=== PATIENT | male | born 1940 | race Caucasian/White ===

== ENCOUNTER → 2017-12-20 | Outpatient (CLI) | payer MEDICARE, OTHER ==
[~2017-12-20] MED LIST: AUGMENTIN 875875 MG PO; BENADRYL25 MG PO; CENTRUM CHEWAB1 EACH PO; CLONIDINE HCL0.3 M2 PO; DARVOCET-N 1001 EACH PO; FUROSEMIDE 20 M20 M1 PO; HYDROXYZINE HCL25 M1 PO; MEDROLDOSEPACK PO; MOM; NORVASC 5 MG TAB5 MG PO; PEPCID20 MG PO; PERCOCET 5-3251 EACH PO; PLAVIX 75 MG TA75 MG PO; PREDNISONE 20 M20 M1 PO; PREDNISONE 20 M20 MG PO; PRILOSEC 20 MG20 MG PO; PROTONIX 20 MG20 M1 PO; PROTONIX40 M2 PO; SIMVASTATIN20 MG PO; TRIAMCINOLONE A80 G2 TOP; VENTOLIN HFA 1818 GM INH; VICODIN 5-5001 EACH PO; VITAMIN D400 UNI1 PO; ZOFRAN 4 MG ORAL4 M1 DIS; ZPAK PO
[2017-12-20 12:01] LABS: ANION GAP 5 mmol/L (7-16); BUN 15 mg/dL (7-18); CALCIUM 8.5 mg/dL (8.5-10.1); CHLORIDE 107 mmol/L (98-107); CHOLESTEROL 140 mg/dL (<200); CO2 33 mmol/L (21-32); GLUCOSE 101 mg/dL (70-99); HDL CHOLESTEROL 68 mg/dL (>40); LDL CHOLESTEROL 51 mg/dL (<100); SGOT 23 U/L (15-37); SGPT 24 U/L (30-65); SODIUM 145 mmol/L (136-145); TC:HDL 2.1 Ratio (Not establshd); TRIGLYCERIDE 109 mg/dL (<150); VLDL 22 mg/dL (<40)
[2017-12-20 12:06] LABS: CREATININE 0.9 mg/dL (0.6-1.3); SERUM ASSESSMENT Clear
== END ==
LOC: M.LAB 11:20
PROVIDERS: Internal Medicine Cardiovascular Disease
DX: I10 Essential (primary) hypertension (principal); E78.00 Pure hypercholesterolemia, unspecified; I25.119 Atherosclerotic heart disease of native coronary artery with unspecified angina pectoris

== ENCOUNTER 2018-02-04 07:16 | Emergency (ER) | payer MEDICARE, OTHER ==
[~2018-02-04] VITALS: Ht 170.2 cm; Wt 72.6 kg
[~2018-02-04 07:16] MED LIST changes: -PREDNISONE 20 M20 M1 PO; -VENTOLIN HFA 1818 GM INH; -ZPAK PO
[2018-02-04] MEDS ORDERED: PROTONIX 20 MG20 M1 PO (07:34)
[2018-02-04 08:49] LABS: INFLUENZA A ANTIGEN None Detected (None Detect); INFLUENZA B ANTIGEN None Detected (None Detect)
[2018-02-04] MEDS ORDERED: PREDNISONE 20 M20 M1 PO (08:52)
[2018-02-04] MEDS ORDERED: VENTOLIN HFA 1818 GM INH (08:52)
[2018-02-04] MEDS ORDERED: ZPAK PO (08:52)
[2018-02-04 08:57] VITALS: BP 143/81
== END 2018-02-04 08:57 | disposition home or self-care (01) ==
LOC: M.ERS 07:16
PROVIDERS: Family Medicine
DX: J40 Bronchitis, not specified as acute or chronic (principal); K21.9 Gastro-esophageal reflux disease without esophagitis; I10 Essential (primary) hypertension; E78.00 Pure hypercholesterolemia, unspecified; Z90.89 Acquired absence of other organs; Z88.6 Allergy status to analgesic agent

== ENCOUNTER → 2019-02-16 | Outpatient (CLI) | payer MEDICARE, OTHER ==
[~2019-02-16] MED LIST changes: +PREDNISONE 20 M20 M1 PO; +VENTOLIN HFA 1818 GM INH; +ZPAK PO
--- NOTE | 2019-02-16 17:07 | CARDNUC ---
[place] [address] CARDIAC NUCLEAR IMAGING REPORT Name: BRANDON CALLOWAY Room: [facility]#: [id number] Admission: 02/16/19 Attend Phys: Pelon Dean, Discharge: Date of : 36 Date of Service: 02/16/19 1707 Report #: [id number] THIS REPORT FOR: //name// APPROVED REPORT Study performed: 02/16/2019 07:45:00 Indication: CAD s/p CABG, RBBB. Patient Location: Out-Patient Stress Tech: Nakia Fritz Stress Nurse: Yamilex Cloud RN Ht: 5 ft 5 in Wt: 168 lbs BSA: 1.84 m2 BMI: 27.95 Medical History Medical History: Angina, CAD s/p CABG, HTN, Hyperlipidemia, RBBB. Medications: Amlodipine, Simvastatin, Clopidogrel. Allergies: ASA, Diltiazem, Metoprolol, Triamterene. Cardiac Risk Factors: Age, FHX of CAD, HTN, Hyperlipidemia. Previous Cardiac Procedures: CABG Pretest Chest Pain Characteristics: No chest pain Exercise History: Indeterminate Physical Disabilities: Generalized weakness. Meds Held (24 hrs): None Resting Data Rest SPECT myocardial perfusion imaging was performed in supine position 30 minutes following the intravenous injection of 10.8 mCi of Tc-99m Sestamibi. Time of rest injection: 08:10 The images were gated to evaluate regional wall motion and calculate left ventricular ejection fraction. Administration Route: IV Administration Site: Right Wrist Pharmacologic Stress Pharmacologic stress test was performed by injecting Regadenoson 0.4 mg IV push over 10-15 seconds immediately followed by the intravenous injection of 34.3 mCi of Tc-99m Sestamibi. Time of stress injection: 10:00 Administration Route: IV Administration Site: Left Arm Heart Rate at time of stress injection: [address] [place] [address] CARDIAC NUCLEAR IMAGING REPORT Name: BRANDON CALLOWAY Room: [facility]#: [id number] Admission: 02/16/19 Attend Phys: Pelon Dean, Discharge: Date of : 36 Date of Service: 02/16/19 1707 Report #: [id number] Gated Stress SPECT was performed 45 minutes after stress injection. The images were gated to evaluate regional wall motion and calculate left ventricular ejection fraction. Prone imaging was performed. Stress Test Details Stress Test: Pharmacologic stress was paired with low level exercise. Reason for pharmacologic stress test: Generalized weakness.. HR Max Heart Rate (APMHR): 140 bpm Resting HR: 61 bpm Target HR (85% APMHR): 119 bpm Max HR Achieved: 122 bpm % of APMHR: 87 Recovery HR: 79 bpm HR response to stress: Normal HR response to stress BP Resting BP: 138/76 mmHg Max BP: 169/72 mmHg Recovery BP: 145/69 mmHg BP response to stress: Normal blood pressure response to stress. ECG Resting ECG: nsr rbbb Stress ECG: nsr ST Change: none Arrhythmia: none Recovery ECG: nsr rbbb Recovery ST Change: none Recovery Arrhythmia: nsr Clinical Reason for Termination: Completed protocol Stress Symptoms: None Exercise duration: 4 min 00 sec Exercise capacity: 2.30 METs Nurse Comments 78 year old male presented with HX of CABG and RBBB. Patient able to walk on low, slow treadmill for walking Lexiscan. Patient tolerated test. Recovery unremarkable with PO caffeine. Patient escorted by staff to Nuclear Medicine for images. Patient stable with no [place] [address] CARDIAC NUCLEAR IMAGING REPORT Name: BRANDON CALLOWAY Room: [facility]#: [id number] Admission: 02/16/19 Attend Phys: Pelon Dean, Discharge: Date of : 36 Date of Service: 02/16/19 1707 Report #: [id number] Stress ECG Conclusion nnondiagnostic ecg portion Study Quality Study: Good Artifact: Mild Motion artifact Lung Uptake: Normal Study Data At rest, the left ventricular ejection fraction was 60%.. Post stress, the left ventricular ejection was 68%.. Perfusion negative perfusion nuclear stress test Wall Motion normal systolic function, no wall motion abnormality Paradoxical septal motion due to bundle branch block. Nuclear Conclusion ECG Findings: non-diagnostic Clinical Findings: negative for ischemia Nuclear Findings: negative for ischemia Exercise Capacity: normal Left Ventricular Function: normal Risk Study: low Negative nuclear stress test. <Conclusion> nnondiagnostic ecg portion <ELECTRONICALLY SIGNED> By: Pelon Dean MD, FACC 02/16/19 170 06 06 Pelon Dean MD, FACC /INF
== END ==
LOC: M.NUC 09-02 07:03
DX: Z48.812 Encounter for surgical aftercare following surgery on the circulatory system (principal); I25.10 Atherosclerotic heart disease of native coronary artery without angina pectoris; I10 Essential (primary) hypertension; E78.5 Hyperlipidemia, unspecified; Z79.899 Other long term (current) drug therapy; Z82.49 Family history of ischemic heart disease and other diseases of the circulatory system; Z95.1 Presence of aortocoronary bypass graft

== ENCOUNTER 2019-07-18 16:50 | Emergency (ER) | payer MEDICARE, OTHER ==
[~2019-07-18] VITALS: Ht 170.2 cm; Wt 70.3 kg
[2019-07-18 17:29] LABS: ABSOLUTE BASOPHILS 0.1 thou/uL (0.0-0.2); ABSOLUTE EOSINOPHILS 0.1 thou/uL (0.0-0.7); ABSOLUTE LYMPHOCYTES 1.8 thou/uL (0.8-5.3); ABSOLUTE MONOCYTES 0.5 thou/uL (0.0-1.2); BASOPHILS 1.2 %; EOSINOPHILS 1.2 %; HEMATOCRIT 38.4 % (42.0-52.0); HEMOGLOBIN 12.9 gm/dL (14.0-18.0); LYMPHOCYTES 33.1 %; MCH 29.7 pg (26.0-34.0); MCHC 33.6 g/dL (28.0-37.0); MCV 88.3 fL (80.0-100.0); MONOCYTES 9.5 %; MPV 6.9 fl. (7.2-11.1); NUCLEATED RBCS 0 /100WBC; PLATELET COUNT* 297 thou/uL (150-400); RBC 4.35 mil/uL (4.50-6.00); RDW-CV 14.9 % (10.5-14.5); WBC 5.4 thou/uL (4.0-11.0)
[2019-07-18 17:42] LABS: ANION GAP 7 mmol/L (7-16); BUN 11 mg/dL (7-18); CALCIUM 9.2 mg/dL (8.5-10.1); CHLORIDE 105 mmol/L (98-107); CO2 29 mmol/L (21-32); CREATININE 0.9 mg/dL (0.6-1.3); GLUCOSE 109 mg/dL (70-99); POTASSIUM 3.8 mmol/L (3.5-5.1); SODIUM 141 mmol/L (136-145)
[2019-07-18 17:44] LABS: APTT 25.4 Seconds (25.0-31.3); PROTIME 10.5 Seconds (9.20-11.50)
[2019-07-18 17:56] LABS: ALBUMIN 3.7 g/dL (3.4-5.0); ALKALINE PHOSPHATASE 71 U/L (46-116); CK-MB MASS 2.2 ng/mL (<0.5-3.6); LIPASE 98 U/L (73-393); MAGNESIUM 2.1 mg/dL (1.8-2.4); NT-PRO BRAIN NAT PEPTIDE 67 pg/mL (<300); SGOT 20 U/L (15-37); SGPT 21 U/L (30-65); TOTAL BILIRUBIN 0.5 mg/dL (<0.1-1.0); TOTAL PROTEIN 6.9 g/dL (6.4-8.2); TROPONIN-I LEVEL <0.06 ng/mL (<0.06)
[2019-07-18 18:18] VITALS: BP 145/56
--- NOTE | 2019-07-19 10:48 | EKG ---
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 : 1940 Requested By: Bryan Hook Order Number: [id number] MD: Ernesto Sexton Measurements Intervals [place] Rate: 72 P: 33 [place]: 176 QRS: -35 QRSD: 149 T: 18 QT: 420 QTc: 460 Interpretive Statements Sinus rhythm Ventricular premature complex Right bundle branch block LVH by voltage Baseline wander in lead(s) V2 Compared to ECG 02/11/2010 09:56:29 Ventricular premature complex(es) now present Right bundle-branch block now present Left ventricular hypertrophy now present Sinus tachycardia no longer present T-wave abnormality no longer present Electronically Signed On 07-19-2019 10:48:48 CDT by Ernesto Sexton [email or web address] <ELECTRONICALLY SIGNED> By: Ernesto Sexton MD, [facility] 07/19/19 1048 1709 1709 Ernesto Sexton MD, [facility] /EPI
== END 2019-07-18 18:19 | disposition home or self-care (01) ==
LOC: M.ERS 16:50
PROVIDERS: Family Medicine
DX: I10 Essential (primary) hypertension (principal); E78.00 Pure hypercholesterolemia, unspecified; K21.9 Gastro-esophageal reflux disease without esophagitis; Z88.6 Allergy status to analgesic agent; Z90.89 Acquired absence of other organs

== ENCOUNTER 2020-06-05 15:07 | Emergency (ER) | payer MEDICARE, OTHER ==
[~2020-06-05] VITALS: Ht 170.2 cm; Wt 70.3 kg
[2020-06-05 17:11] VITALS: BP 109/63
== END 2020-06-05 17:13 | disposition home or self-care (01) ==
LOC: M.ERS 15:07
DX: L50.9 Urticaria, unspecified (principal); I10 Essential (primary) hypertension; E78.00 Pure hypercholesterolemia, unspecified; K21.9 Gastro-esophageal reflux disease without esophagitis; Z90.89 Acquired absence of other organs; Z88.6 Allergy status to analgesic agent; Z95.1 Presence of aortocoronary bypass graft